=== PATIENT | male | born 1995 ===

== ENCOUNTER 2019-02-13 23:30 | Emergency (ER) | payer BC ==
--- NOTE | 2019-02-14 01:20 | ED ---
GI/ HPI - HPI Summary HPI Summary: This patient is a 23 year old M presenting to [facility] with a chief complaint of left scrotal swelling since 02/09/19. Patient denies injury and reports intermittent pain. - History of Current Complaint Chief Complaint: EDUrogenitalProblems Time Seen by Provider: 02/14/19 00:57 Stated Complaint: LUMP ON TESTICAL PER PT Hx Obtained From: Patient Onset/Duration: Started Days Ago, Still Present Timing: Lasting Days Current Severity: Mild Pain Intensity: 2 Additional Locations for Males: Scrotum Aggravating Factor(s): Nothing Alleviating Factor(s): Nothing - Allergy/Home Medications Allergies/Adverse Reactions: Allergies Allergy/AdvReac Type Severity Reaction Status Date / Time No Known Allergies Allergy Verified 02/13/19 23:36 PMH/Surg Hx/FS Hx/Imm Hx Endocrine/Hematology History: Denies: Hx Diabetes Respiratory History: Denies: Hx Asthma Neurological History: Reports: Other Neuro Impairments/Disorders - Epilepsy Infectious Disease History: No Infectious Disease History: Denies: Traveled Outside the [place] in Last 30 Days - Family History Known Family History: Positive: Cardiac Disease, Diabetes, Other - Cancer, stroke - Social History Occupation: Employed Full-time, Student Lives: With Family Alcohol Use: None Hx Substance Use: No Hx Tobacco Use: Yes Type: eCigareamee Review of Systems Negative: Fever Positive: other - Scrotal swelling and intermittent pain All Other Systems Reviewed And Are Negative: Yes Physical Exam - Summary Physical Exam Summary: VITAL SIGNS: Reviewed. GENERAL: Patient is a well-developed and nourished MALE who is lying comfortable in the stretcher. Patient is not in any acute respiratory distress. HEAD AND FACE: No signs of trauma. No ecchymosis, hematomas or skull depressions. No sinus tenderness. EYES: PERRLA, EOMI x 2, No injected conjunctiva, no nystagmus. EARS: Hearing grossly intact. Ear canals and tympanic membranes are within normal limits. MOUTH: Oropharynx within normal limits. NECK: Supple, trachea is midline, no adenopathy, no JVD, no carotid bruit, no c- spine tenderness, neck with full ROM. CHEST: Symmetric, no tenderness at palpation LUNGS: Clear to auscultation bilaterally. No wheezing or crackles. CVS: Regular rate and rhythm, S1 and S2 present, no murmurs or gallops appreciated. ABDOMEN: Soft, non-tender. No signs of distention. No rebound no guarding, and no masses palpated. Bowel sounds are normal. EXTREMITIES: FROM in all major joints, no edema, no cyanosis or clubbing. NEURO: Alert and oriented x 3. No acute neurological deficits. Speech is normal and follows commands. SKIN: Dry and warm GENITOURINARY: Does have a few warts over thee scrotum. No tenderness, no swelling, no masses felt. Triage Information Reviewed: Yes Vital Signs On Initial Exam: Initial Vitals Temp Pulse Resp BP Pulse Ox 97.7 F 60 20 146/107 98 02/13/19 23:32 02/13/19 23:32 02/13/19 23:32 02/13/19 23:32 02/13/19 23:32 Vital Signs Reviewed: Yes Diagnostics - Vital Signs Vital Signs Temp Pulse Resp BP Pulse Ox 02/13/19 23:32 97.7 F 60 20 146/107 98 - Laboratory Lab Statement: Any lab studies that have been ordered have been reviewed, and results considered in the medical decision making process. - Ultrasound No standard instances Ultrasound Interpretation Completed By: Radiologist Summary of Ultrasound Findings: Testicular US 00:49. Normal testicles. Small bilateral hydroceles. ED Physician has reviewed this imaging report. GIGU Course/Dx - Course Course Of Treatment: This patient is a 23 year old M presenting to [facility] with a chief complaint of left scrotal swelling since 02/09/19. Patient denies injury and reports intermittent pain. Testicular US showed Normal testicles. Small bilateral hydroceles. I discharged him with a dx of scrotal swelling. - Diagnoses Provider Diagnoses: Scrotal swelling Discharge - Sign-Out/Discharge Documenting (check all that apply): Patient Departure - D/C home Patient Received Moderate/Deep Sedation with Procedure: No - Discharge Plan Condition: Stable Disposition: HOME Patient Education Materials: Scrotal Pain (ED) Referrals: Kervin Eaton MD [Medical Doctor] - 2 Days Additional Instructions: RETURN TO THE EMERGENCY DEPARTMENT FOR CHANGING OR WORSENING SYMPTOMS. FOLLOW UP WITH DR. EATON, UROLOGY, IN 1-2 DAYS. - Attestation Statements Document Initiated by Scribe: Yes Documenting Scribe: Anthony Nassar Provider For Whom Scribe is Documenting (Include Credential): Rose Locke MD Scribe Attestation: Anthony Ramírez, scribed for Rose Locke MD on 02/14/19 at 0159. Status of Scribe Document: Ready
[2019-02-14 02:47] VITALS: BP 126/96
== END 2019-02-14 02:47 | disposition home or self-care (01) ==
LOC: ED 23:30
DX: R22.9 Localized swelling, mass and lump, unspecified (principal); N50.89 Other specified disorders of the male genital organs
CPT/HCPCS: 76870; 99282